=== PATIENT | female | born 1965 | race Hispanic/Latino ===

== ENCOUNTER → 2024-09-27 | Outpatient (REF) | payer OTHER | LOC: US 09:07 | PROVIDERS: ATTEND Nurse Practitioner | DX: R10.84 Generalized abdominal pain (principal) | CPT/HCPCS: 76700 ==

== ENCOUNTER → 2024-12-03 | Day surgery (SDC) | payer OTHER ==
[~2024-12-03] MED LIST: FENTANYL CITRATE/PF 100MCG/2 ML INJ ONE; LIDOCAINE HCL 2% LOCAL INJ 5 ML SDV VIAL INJ ONE; LIPITOR10 MG PO; LISINOPRIL-HCT1 EAC1 PO; METFORMIN HCL500 MG PO; METOCLOPRAMIDE HCL 10 MG/2ML VIAL ONE; PANTOPRAZOLE SO40 MG PO; PROPOFOL IV EMULSION 10 MG/ML 20 ML VIAL ONE; PROPOFOL IV EMULSION 50 ML IV ONE
[2024-12-03] MEDS: LACTATED RINGER'S 1,000 ML ONE (11:42)
[2024-12-03 14:44] VITALS: TEMP 98.9
[2024-12-03 15:05] VITALS: BP 123/77; PULSE 83; RESP 18; O2SAT 99
[2024-12-04 21:05] LABS: C-REACTIVE PROTEIN 4 mg/L (0-10)
[2024-12-06 08:12] LABS: ENDOMYSIAL ANTIBODIES, IGA Negative (Negative)
[2024-12-06 08:47] LABS: IMMUNOGLOBULIN A 465 mg/dL (87-352); TISSUE TRANSGLUTAMINASE IGA AB <2 U/mL (0-3)
== END | disposition home or self-care (01) ==
LOC: OR 11:05
PROVIDERS: ATTEND Internal Medicine Gastroenterology
DX: K29.70 Gastritis, unspecified, without bleeding (principal); K52.9 Noninfective gastroenteritis and colitis, unspecified; K20.90 Esophagitis, unspecified without bleeding; K31.A15 Gastric intestinal metaplasia without dysplasia, involving multiple sites; K31.89 Other diseases of stomach and duodenum; K22.89 Other specified disease of esophagus; K21.9 Gastro-esophageal reflux disease without esophagitis; K59.00 Constipation, unspecified; K62.89 Other specified diseases of anus and rectum; K64.8 Other hemorrhoids; I10 Essential (primary) hypertension; E78.5 Hyperlipidemia, unspecified; E11.9 Type 2 diabetes mellitus without complications; M06.9 Rheumatoid arthritis, unspecified; M19.90 Unspecified osteoarthritis, unspecified site; Z79.84 Long term (current) use of oral hypoglycemic drugs; Z79.899 Other long term (current) drug therapy; Z80.0 Family history of malignant neoplasm of digestive organs
CPT/HCPCS: 43239; 45380; 82784; 83516; 86140; 86256; 87045; J2003; J2470; J2704 ×2; J2765; J3010; J7121

== ENCOUNTER → 2025-05-29 | Day surgery (SDC) | payer OTHER ==
[2025-05-26 11:22] LABS: BASOPHILS % 0.4 % (0.0-1.0); EOSINOPHILS % 0.9 % (0.0-6.0); LYMPHOCYTES % 20.4 % (18.0-39.1); MONOCYTES % 8.0 % (4.4-11.3); NEUTROPHILS % 70.0 % (38.7-80.0); RED CELL DISTRIBUTION WIDTH 14.7 % (11.7-14.4)
[2025-05-26 11:43] LABS: EST GLOMERULAR FILTRATION RATE 81.0 ML/MIN (>=60)
[~2025-05-29] MED LIST changes: +ACETAMINOPHEN 1000 MG/100 ML 100 ML IV ONE; +ASPIRIN 325 MG TAB PO SCH; +CELECOXIB 100 MG CAP PO SCH; +DEXAMETHASONE SOD PHOS INJ 4 MG/ML SDV ONE; +DICYCLOMINE HCL20 MG PO; +DOCUSATE SODIUM 100 MG CAP PO PRN; +FAMOTIDINE 20 MG/2 ML VIAL IV ONE; +HYDROCODONE/APAP 7.5MG-325MG 1 EA TAB PO PRN; +KETOROLAC TROMETHAMINE 30 MG/ML VIAL ONE; -METOCLOPRAMIDE HCL 10 MG/2ML VIAL ONE; +ONDANSETRON HCL INJ 2MG/ML 2ML 2 MG/ML VIAL IV PRN; +ONDANSETRON HCL INJ 2MG/ML 2ML 2 MG/ML VIAL ONE; +PHENYLEPHRINE HCL 1% 10 MG/ML VIAL ONE; -PROPOFOL IV EMULSION 50 ML IV ONE; +ROPIVACAINE/EPI/CLONIDINE/KET 50 ML SYRINGE INJ ONE; +SODIUM CHLORIDE 0.9% 100 ML ONE
[2025-05-29] MEDS: LACTATED RINGER'S 1,000 ML ONE (08:09)
[2025-05-29] MEDS: CEFAZOLIN SODIUM 2 GM ONE (08:09)
[2025-05-29] MEDS: HYDROMORPHONE 1MG/1ML INJ ONE (11:56)
[2025-05-29 14:45] VITALS: BP 114/63; PULSE 100; RESP 18; O2SAT 94
== END | disposition home or self-care (01) ==
LOC: OR 07:29
PROVIDERS: ATTEND Orthopaedic Surgery Adult Reconstructive Orthopaedic Surgery
DX: M17.11 Unilateral primary osteoarthritis, right knee (principal); I10 Essential (primary) hypertension; E11.9 Type 2 diabetes mellitus without complications; E78.00 Pure hypercholesterolemia, unspecified; E66.3 Overweight; Z68.28 Body mass index [BMI] 28.0-28.9, adult; Z79.84 Long term (current) use of oral hypoglycemic drugs; Z79.1 Long term (current) use of non-steroidal anti-inflammatories (NSAID); Z79.899 Other long term (current) drug therapy; Z01.810 Encounter for preprocedural cardiovascular examination; Z01.812 Encounter for preprocedural laboratory examination
CPT/HCPCS: 27447; 36415 ×2; 73560; 80048; 82948; 85025; 86850; 86900; 93005; 97116; 97161; 97530; C1713; C1776 ×4; J0131; J1100; J1171; J1308; J1885; J2003; J2371; J2405; J2704; J3010; J7050; J7121

== ENCOUNTER 2025-07-04 14:45 | Emergency (ER) | payer OTHER ==
[~2025-07-04] VITALS: Ht 160 cm; Wt 69.4 kg
[~2025-07-04 14:45] MED LIST changes: -ACETAMINOPHEN 1000 MG/100 ML 100 ML IV ONE; -ASPIRIN 325 MG TAB PO SCH; -CELECOXIB 100 MG CAP PO SCH; -DEXAMETHASONE SOD PHOS INJ 4 MG/ML SDV ONE; -DOCUSATE SODIUM 100 MG CAP PO PRN; -FAMOTIDINE 20 MG/2 ML VIAL IV ONE; -FENTANYL CITRATE/PF 100MCG/2 ML INJ ONE; -HYDROCODONE/APAP 7.5MG-325MG 1 EA TAB PO PRN; -KETOROLAC TROMETHAMINE 30 MG/ML VIAL ONE; -LIDOCAINE HCL 2% LOCAL INJ 5 ML SDV VIAL INJ ONE; -ONDANSETRON HCL INJ 2MG/ML 2ML 2 MG/ML VIAL IV PRN; -ONDANSETRON HCL INJ 2MG/ML 2ML 2 MG/ML VIAL ONE; -PHENYLEPHRINE HCL 1% 10 MG/ML VIAL ONE; -PROPOFOL IV EMULSION 10 MG/ML 20 ML VIAL ONE; -ROPIVACAINE/EPI/CLONIDINE/KET 50 ML SYRINGE INJ ONE; -SODIUM CHLORIDE 0.9% 100 ML ONE
[2025-07-04 16:48] LABS: BASOPHILS % 1.0 % (0.0-1.0); EOSINOPHILS % 3.1 % (0.0-6.0); LYMPHOCYTES % 28.6 % (18.0-39.1); MONOCYTES % 8.9 % (4.4-11.3); NEUTROPHILS % 58.0 % (38.7-80.0); RED CELL DISTRIBUTION WIDTH 14.9 % (11.7-14.4)
[2025-07-04 16:53] LABS: INR 0.89
[2025-07-04 16:58] LABS: EST GLOMERULAR FILTRATION RATE 101 ML/MIN (>=60)
[2025-07-04] MEDS: ONDANSETRON HCL INJ 2MG/ML 2ML 2 MG/ML VIAL IV STA (17:36)
[2025-07-04] MEDS: SODIUM CHLORIDE 0.9% 1000ML 1,000 ML IV STA (17:37)
[2025-07-04] MEDS ORDERED: ONDANSETRON ODT4 MG PO (18:18)
[2025-07-04 19:26] VITALS: PULSE 96; RESP 12; TEMP 98.6
[2025-07-04 19:28] VITALS: BP 132/56; PULSE 96; RESP 12; TEMP 98.4; O2SAT 99
== END 2025-07-04 19:29 | disposition home or self-care (01) ==
LOC: ER 16:07
DX: R11.2 Nausea with vomiting, unspecified (principal); R53.1 Weakness; I10 Essential (primary) hypertension; E11.9 Type 2 diabetes mellitus without complications
CPT/HCPCS: 36415; 80053; 83735; 84484; 85025; 85610; 85730; 99284; J2405; J2470; J7030

== ENCOUNTER 2025-07-15 16:33 | Emergency (ER) | payer OTHER ==
[~2025-07-15] VITALS: Ht 157.5 cm; Wt 69.4 kg
[~2025-07-15 16:33] MED LIST changes: +ONDANSETRON ODT4 MG PO
[2025-07-15 18:30] LABS: BASOPHILS % 0.9 % (0.0-1.0); EOSINOPHILS % 2.1 % (0.0-6.0); LYMPHOCYTES % 22.8 % (18.0-39.1); MONOCYTES % 8.2 % (4.4-11.3); NEUTROPHILS % 65.5 % (38.7-80.0); RED CELL DISTRIBUTION WIDTH 14.8 % (11.7-14.4)
[2025-07-15 19:09] VITALS: TEMP 99.2
[2025-07-15 19:44] LABS: EST GLOMERULAR FILTRATION RATE 93.0 ML/MIN (>=60)
[2025-07-15] MEDS ORDERED: IOPAMIDOL 370 MG/ML 100 ML INFUS..BTL INJ ONE (20:14)
[2025-07-15] MEDS ORDERED: ONDANSETRON ODT4 MG PO (23:00)
[2025-07-15] MEDS ORDERED: AMOX TR-K CLV1 EAC2 PO (23:00)
[2025-07-15 23:25] VITALS: PULSE 99; RESP 14
[2025-07-15] MEDS: ACETAMINOPHEN 325 MG TAB PO STA (23:29)
[2025-07-16 01:02] VITALS: BP 112/65; PULSE 99; RESP 14; TEMP 98.4; O2SAT 98
== END 2025-07-15 23:28 | disposition home or self-care (01) ==
LOC: ER 17:31
DX: R13.10 Dysphagia, unspecified (principal); K51.50 Left sided colitis without complications; R11.2 Nausea with vomiting, unspecified; I10 Essential (primary) hypertension; E11.9 Type 2 diabetes mellitus without complications; R94.31 Abnormal electrocardiogram [ECG] [EKG]
CPT/HCPCS: 36415; 71260; 74177; 80053; 82550; 83690; 84484; 85025; 93005; 99284; Q9967

== ENCOUNTER → 2025-07-18 | Day surgery (SDC) | payer OTHER ==
[~2025-07-18] MED LIST changes: +AMOX TR-K CLV1 EAC2 PO; +AUGMENTIN 500-1 EACH PO; +GABAPENTIN100 MG PO; +LIDOCAINE HCL 2% LOCAL INJ 5 ML SDV VIAL INJ ONE; +METOCLOPRAMIDE10 MG PO; +ONDANSETRON HCL4 MG PO; +PROPOFOL IV EMULSION 10 MG/ML 20 ML VIAL ONE; +SERTRALINE HCL25 MG PO; +SUCRALFATE1 GM PO
[2025-07-18] MEDS: LACTATED RINGER'S 1,000 ML ONE (06:06)
[2025-07-18 07:36] VITALS: TEMP 97.9
[2025-07-18 07:50] VITALS: BP 131/67; PULSE 87; RESP 16; O2SAT 100
== END | disposition home or self-care (01) ==
LOC: OR 05:18
PROVIDERS: ATTEND Internal Medicine Gastroenterology
DX: K29.70 Gastritis, unspecified, without bleeding (principal); K20.90 Esophagitis, unspecified without bleeding; K31.A12 Gastric intestinal metaplasia without dysplasia, involving the body (corpus); K31.89 Other diseases of stomach and duodenum; R19.7 Diarrhea, unspecified; K76.0 Fatty (change of) liver, not elsewhere classified; R63.4 Abnormal weight loss; E11.9 Type 2 diabetes mellitus without complications; I10 Essential (primary) hypertension; Z71.89 Other specified counseling; E78.00 Pure hypercholesterolemia, unspecified; Z79.84 Long term (current) use of oral hypoglycemic drugs; Z79.899 Other long term (current) drug therapy; Z68.26 Body mass index [BMI] 26.0-26.9, adult; Z71.3 Dietary counseling and surveillance; Z86.0100 Personal history of colon polyps, unspecified; Z80.0 Family history of malignant neoplasm of digestive organs
CPT/HCPCS: 36415; 43239; 43450; 82948; J2003; J2470; J2704; J7121

== ENCOUNTER 2025-07-28 13:39 | Inpatient (IN) | payer OTHER ==
[~2025-07-28] VITALS: Ht 157.5 cm; Wt 66.2 kg
[~2025-07-28 13:39] MED LIST changes: -AUGMENTIN 500-1 EACH PO; -GABAPENTIN100 MG PO; -LIDOCAINE HCL 2% LOCAL INJ 5 ML SDV VIAL INJ ONE; -METOCLOPRAMIDE10 MG PO; -ONDANSETRON HCL4 MG PO; -PROPOFOL IV EMULSION 10 MG/ML 20 ML VIAL ONE; -SERTRALINE HCL25 MG PO; -SUCRALFATE1 GM PO
[2025-07-28 13:45] VITALS: TEMP 98.7
[2025-07-28] MEDS: SODIUM CHLORIDE 0.9% 1000ML 1,000 ML IV STA ×2 (15:20→15:40)
[2025-07-28] MEDS: ONDANSETRON HCL INJ 2MG/ML 2ML 2 MG/ML VIAL IV STA (15:20)
[2025-07-28 15:28] LABS: BASOPHILS % 0.7 % (0.0-1.0); EOSINOPHILS % 1.0 % (0.0-6.0); LYMPHOCYTES % 25.4 % (18.0-39.1); MONOCYTES % 8.4 % (4.4-11.3); NEUTROPHILS % 63.8 % (38.7-80.0); RED CELL DISTRIBUTION WIDTH 14.8 % (11.7-14.4)
[2025-07-28 15:34] LABS: INR 1.0
[2025-07-28 15:44] LABS: EST GLOMERULAR FILTRATION RATE 37.0 ML/MIN (>=60)
[2025-07-28] MEDS ORDERED: SODIUM CHLORIDE 0.9% 1000ML 1,000 ML ONE (16:10)
[2025-07-28 17:12] LABS: LEUKOCYTE ESTERASE ,URINE NEGATIVE (NEGATIVE)
[2025-07-28 17:13] LABS: AMPHETAMINES SCREEN,URINE POSITIVE (NEGATIVE); CANNABINOIDS SCREEN,URINE NEGATIVE (NEGATIVE); COCAINE SCREEN,URINE NEGATIVE (NEGATIVE); METHADONE SCREEN, URINE NEGATIVE (NEGATIVE); OPIATES SCREEN,URINE NEGATIVE (NEGATIVE); PROTEIN,URINE DIPSTICK 1+ (NEGATIVE); URINE UROBILINOGEN 0.2 mg/dL (0.2 - 1)
[2025-07-28 17:19] LABS: EPITHELIAL CELLS,URINE FEW /LPF; WBC,URINE (MAN) 0-5 /HPF (0-5)
[2025-07-28] MEDS: SODIUM CHLORIDE 0.9% 1000ML 1,000 ML IV SCH (17:26)
[2025-07-28] MEDS: POTASSIUM CHLORIDE 10MEQ/100ML 100 ML IV SCH (17:26)
[2025-07-28] MEDS: MAGNESIUM SULFATE 2GM/50ML 50 ML IV ONE ×2 (17:26→22:34)
[2025-07-28] MEDS: KCL 20 MEQ PACKET/ ORAL SOLN PO STA (17:34)
[2025-07-28] MEDS ORDERED: ONDANSETRON HCL INJ 2MG/ML 2ML 2 MG/ML VIAL IV PRN (17:45)
[2025-07-28 21:00] VITALS: PULSE 95; RESP 21
[2025-07-28 22:15] VITALS: BP 102/68; PULSE 92; RESP 16; TEMP 98.1; O2SAT 99
[2025-07-28 22:30] VITALS: BP 102/68; PULSE 92; RESP 16; TEMP 98.1; O2SAT 98
[2025-07-28] MEDS ORDERED: GABAPENTIN100 MG PO (22:56)
[2025-07-28] MEDS ORDERED: SUCRALFATE1 GM PO (22:56)
[2025-07-28] MEDS ORDERED: SERTRALINE HCL25 MG PO (22:56)
[2025-07-28] MEDS ORDERED: METOCLOPRAMIDE10 MG PO (22:56)
[2025-07-29] MEDS: METOCLOPRAMIDE HCL 10 MG/2ML VIAL IV SCH
[2025-07-29 04:00] VITALS: BP 114/77; PULSE 88; RESP 16; TEMP 97.9; O2SAT 98
[2025-07-29 05:45] LABS: BASOPHILS % 0.9 % (0.0-1.0); EOSINOPHILS % 2.2 % (0.0-6.0); LYMPHOCYTES % 28.8 % (18.0-39.1); MONOCYTES % 9.6 % (4.4-11.3); NEUTROPHILS % 58.0 % (38.7-80.0); RED CELL DISTRIBUTION WIDTH 14.7 % (11.7-14.4)
[2025-07-29 06:23] LABS: EST GLOMERULAR FILTRATION RATE 89.0 ML/MIN (>=60)
[2025-07-29] MEDS: INSULIN LISPRO 100 UNIT/1 ML 3ML VIAL SQ SCH (07:30)
[2025-07-29 08:39] VITALS: BP 110/63; PULSE 80; RESP 14; TEMP 98.4; O2SAT 100
[2025-07-29 09:00] VITALS: BP 110/63; PULSE 80; RESP 14; TEMP 98.4; O2SAT 97
[2025-07-29 11:04] VITALS: BP 111/61; PULSE 78; RESP 18; TEMP 98.1; O2SAT 100
[2025-07-29 16:03] VITALS: BP 114/62; PULSE 82; RESP 16; TEMP 98.2; O2SAT 100
[2025-07-29] MEDS: SUCRALFATE 1 GM TAB PO SCH (18:10)
[2025-07-29 20:00] VITALS: BP 136/60; PULSE 82; RESP 18; TEMP 98.7; O2SAT 98
[2025-07-29] MEDS: GABAPENTIN 100 MG CAP PO SCH (20:41)
[2025-07-29] MEDS: ATORVASTATIN 10 MG TAB PO SCH (20:41)
[2025-07-30] VITALS: BP 113/56; PULSE 78; RESP 18; TEMP 98.4; O2SAT 100
[2025-07-30] MEDS: POTASSIUM CHLORIDE 20 MEQ TAB CR PO STA ×2 (02:53→03:15)
[2025-07-30 04:00] VITALS: BP 103/63; PULSE 87; RESP 18; TEMP 98.3; O2SAT 100
[2025-07-30 05:44] LABS: BASOPHILS % 0.7 % (0.0-1.0); EOSINOPHILS % 4.0 % (0.0-6.0); LYMPHOCYTES % 31.1 % (18.0-39.1); MONOCYTES % 9.3 % (4.4-11.3); NEUTROPHILS % 54.8 % (38.7-80.0); RED CELL DISTRIBUTION WIDTH 14.8 % (11.7-14.4)
[2025-07-30 06:19] LABS: EST GLOMERULAR FILTRATION RATE 108.0 ML/MIN (>=60)
[2025-07-30 09:00] VITALS: BP 136/63; PULSE 83; RESP 18; TEMP 97.9; O2SAT 100
[2025-07-30 09:43] VITALS: BP 136/63; PULSE 83; RESP 18; TEMP 97.9; O2SAT 100
[2025-07-30 17:07] VITALS: BP 129/74; PULSE 75; RESP 18; TEMP 98.1; O2SAT 100
[2025-07-30] MEDS ORDERED: ONDANSETRON HCL4 MG PO (17:31)
[2025-07-30] MEDS: POTASSIUM CHLORIDE 20 MEQ TAB CR PO ONE (17:35)
[2025-07-30 17:45] VITALS: BP 108/64; PULSE 92; RESP 18; TEMP 98.2; O2SAT 100
[2025-07-30] MEDS ORDERED: ONDANSETRON ODT4 MG PO (18:58)
== END 2025-07-30 19:55 | disposition home or self-care (01) | DRG 683 ==
LOC: ER 14:13 → ERHOLD 17:48 → MED/SURG2 22:06
PROVIDERS: ADMIT Internal Medicine; ATTEND Internal Medicine
DX: N17.9 Acute kidney failure, unspecified (principal); E44.0 Moderate protein-calorie malnutrition; E87.1 Hypo-osmolality and hyponatremia; R13.10 Dysphagia, unspecified; E11.65 Type 2 diabetes mellitus with hyperglycemia; E86.0 Dehydration; E87.6 Hypokalemia; I10 Essential (primary) hypertension; E87.8 Other disorders of electrolyte and fluid balance, not elsewhere classified; E78.5 Hyperlipidemia, unspecified; K29.50 Unspecified chronic gastritis without bleeding; R11.2 Nausea with vomiting, unspecified; M06.9 Rheumatoid arthritis, unspecified; R63.0 Anorexia; E83.42 Hypomagnesemia; Z79.84 Long term (current) use of oral hypoglycemic drugs; Z68.26 Body mass index [BMI] 26.0-26.9, adult
CPT/HCPCS: 36415; 71045; 80048; 80053; 80307; 81001; 82550; 82948; 83735; 84443; 84484; 85025; 85610; 85730; 93005; 99284; J2405; J2470; J2765; J3475; J3480; J7030

== ENCOUNTER 2025-08-05 19:15 | Emergency (ER) | payer OTHER ==
[~2025-08-05] VITALS: Ht 160 cm; Wt 67.6 kg
[~2025-08-05 19:15] MED LIST changes: +GABAPENTIN100 MG PO; +METOCLOPRAMIDE10 MG PO; +ONDANSETRON HCL4 MG PO; +SERTRALINE HCL25 MG PO; +SUCRALFATE1 GM PO
[2025-08-05 20:00] VITALS: TEMP 98.4
[2025-08-05] MEDS ORDERED: KETOROLAC TROMETHAMINE 30 MG/ML VIAL ONE (20:36)
[2025-08-05] MEDS ORDERED: SODIUM CHLORIDE 0.9% 1000ML 1,000 ML ONE (20:36)
[2025-08-05] MEDS ORDERED: ONDANSETRON HCL INJ 2MG/ML 2ML 2 MG/ML VIAL ONE (20:36)
[2025-08-05] MEDS: ONDANSETRON HCL INJ 2MG/ML 2ML 2 MG/ML VIAL IV STA (20:44)
[2025-08-05] MEDS: KETOROLAC TROMETHAMINE 30 MG/ML VIAL IV STA (20:44)
[2025-08-05 20:56] LABS: BASOPHILS % 0.5 % (0.0-1.0); EOSINOPHILS % 2.0 % (0.0-6.0); LYMPHOCYTES % 31.5 % (18.0-39.1); MONOCYTES % 8.5 % (4.4-11.3); NEUTROPHILS % 57.2 % (38.7-80.0); RED CELL DISTRIBUTION WIDTH 14.9 % (11.7-14.4)
[2025-08-05 20:58] LABS: LEUKOCYTE ESTERASE ,URINE SMALL (NEGATIVE); PROTEIN,URINE DIPSTICK 1+ (NEGATIVE); URINE UROBILINOGEN 0.2 mg/dL (0.2 - 1)
[2025-08-05 21:10] LABS: EPITHELIAL CELLS,URINE FEW /LPF
[2025-08-05 21:12] LABS: CORONAVIRUS COVID-19 AG NEGATIVE (NEGATIVE)
[2025-08-05] MEDS: SODIUM CHLORIDE 0.9% 1000ML 1,000 ML IV STA (21:12)
[2025-08-05 21:22] LABS: EST GLOMERULAR FILTRATION RATE 83 ML/MIN (>=60)
[2025-08-05] MEDS ORDERED: SODIUM CHLORIDE 0.9% 1000ML 1,000 ML IV STA (22:51)
[2025-08-06 01:30] VITALS: PULSE 87; RESP 20
[2025-08-06] MEDS ORDERED: AUGMENTIN 500-1 EACH PO (01:31)
[2025-08-06 01:45] VITALS: BP 109/63; PULSE 87; RESP 20; O2SAT 98
== END 2025-08-06 01:48 | disposition home or self-care (01) ==
LOC: ER 19:20
DX: R11.2 Nausea with vomiting, unspecified (principal); N39.0 Urinary tract infection, site not specified; R10.9 Unspecified abdominal pain; I10 Essential (primary) hypertension; E11.9 Type 2 diabetes mellitus without complications; E78.5 Hyperlipidemia, unspecified; M06.9 Rheumatoid arthritis, unspecified; Z11.52 Encounter for screening for COVID-19
CPT/HCPCS: 36415; 71046; 74176; 80053; 81001; 83690; 85025; 87428; 99284; J1885; J2405; J7030